=== PATIENT | male | born 1985 | race Caucasian/White ===

== ENCOUNTER → 2022-05-05 | Day surgery (SDC) | payer OTHER ==
[~2022-05-05] VITALS: Ht 172.7 cm; Wt 80.7 kg
[~2022-05-05] MED LIST: HYDROCODON-ACE1 EAC2 PO; HYDROCODON-ACE1 EAC6 PO; LISINOPRIL5 MG PO
[2022-05-05 08:18] LABS: HEMOGLOBIN 16.2 gm/dl (14.0-17.5); RED BLOOD COUNT 5.33 M/UL (4.20-5.50); WHITE BLOOD COUNT 14.9 K/UL (4.5-11.0)
[2022-05-05 08:52] LABS: BUN/CREATININE RATIO 15 (0-10)
== END | disposition home or self-care (01) ==
LOC: OR 07:06
PROVIDERS: Orthopaedic Surgery
DX: S62.314A Displaced fracture of base of fourth metacarpal bone, right hand, initial encounter for closed fracture (principal); S62.316A Displaced fracture of base of fifth metacarpal bone, right hand, initial encounter for closed fracture; Y04.2XXA Assault by strike against or bumped into by another person, initial encounter; I10 Essential (primary) hypertension; J44.9 Chronic obstructive pulmonary disease, unspecified; F32.A Depression, unspecified; Z79.899 Other long term (current) drug therapy
CPT/HCPCS: 36415; 73130; 76000; 80048; 85027; C1713; J0690; J1100; J1170; J1885; J2001; J2250; J2405; J2704; J3010